=== PATIENT | female | born 1985 | race African-American/Black ===

== ENCOUNTER 2017-08-26 01:17 | Emergency (ER) | payer OTHER ==
--- NOTE | 2017-08-26 01:31 | PDOC ---
History of Present Illness - General Stated Complaint: SHOULDER PAIN Time Seen by Provider: 08/26/17 01:23 History Source: Patient - History of Present Illness Initial Comments: 08/26/17 01:28 Patient is a 32 y.o. female with a PMH of obesity who presents to the ED c/o R shoulder pain. Patient states she was chasing her nephew and she ran into the side of the wall injuring her shoulder. Patient denies any head trauma or LOC. Patient has been using the arm to complete her ADL's but complains of significant pain. NKDA Surgical: L ankle Social: denies cigarettes, denies alcohol, denies recreational drugs Past History - Past Medical History Allergies/Adverse Reactions: Allergies Allergy/AdvReac Type Severity Reaction Status Date / Time No Known Allergies Allergy Verified 08/26/17 01:50 Home Medications: Ambulatory Orders No Home Medications 0 dose .ROUTE UTDICT 03/14/14 - Immunization History Td Vaccination: Yes TDAP Vaccination: Yes Immunization Up to Date: Yes - Suicide/Smoking/Psychosocial Hx Smoking Status: No Smoking History: Never smoked Number of Cigarettes Smoked Daily: 0 Hx Alcohol Use: No Review of Systems - Review of Systems Constitutional: No: Chills, Fever Respiratory: No: Shortness of Breath Cardiac (ROS): No: Chest Pain Musculoskeletal: Yes: Joint Pain All Other Systems: Reviewed and Negative *Physical Exam - Physical Exam General Appearance: Yes: Nourished, Obese Neck: positive: Trachea midline, Supple Respiratory/Chest: positive: Lungs Clear Cardiovascular: positive: S1, S2 Extremity: positive: Normal Capillary Refill, Normal Inspection, Other (RUE limited ROM, no TTP, neurovasculary intact) Neurologic: positive: bench tool maker II-XII NML intact, Fully Oriented, Alert Medical Decision Making - Medical Decision Making 08/26/17 02:55 Patient is a 32 y.o. female who presents to the ED c/o R shoulder pain following an injury. On PE patient has limited ROM however is neurovasculary intact. XR of shoulder and hand shows no acute fracture or dislocation. 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 *DC/Admit/Observation/Transfer Diagnosis at time of Disposition: Injury - Discharge Dispostion Disposition: HOME Condition at time of disposition: Good Admit: No - Referrals Referrals: Carmina Mancini [Primary Care Provider] - Ada Monreal MD [Staff Physician] - - Patient Instructions Printed Discharge Instructions: Shoulder Sprain Additional Instructions: Use Motrin for pain control. Please follow up with your PCP should your pain persist. Please contact Dr. Ashley (contact information provided) for evaluation of your irregular menstrual periods. - Post Discharge Activity
--- NOTE | 2017-08-26 01:47 | PDOC ---
Attending Attestation - Resident Resident Name: Bing Cruz - ED Attending Attestation I have performed the following: I have examined & evaluated the patient, The case was reviewed & discussed with the resident, I agree w/resident's findings & plan, Exceptions are as noted <Vale Dean - Last Filed: 08/26/17 01:47> - HPI HPI: 08/26/17 02:26 Patient is a 32 year old female with a significant past medical history of unspecified gynecological problem who presents to the ED with complaints of right shoulder pain that began tonight. Patient reports chasing another individual while indoor when she ran into a doorway edge causing immediate pain to right shoulder. She reports experiencing right hand numbness and is unsure if it is related to her shoulder pain. Patient states she is right hand dominant. Denies chest pain, SOB. Denies fever, chills. Denies nausea, vomiting. Denies lightheadedness, headache. Denies Loss of consciousness, head trauma. Denies any other symptoms. Allergies: None Social history: No smoking. No alcohol. No illicit drugs. Surgical history: left knee surgery PMD: Dr. Carmina Mancini <Bob Savage - Last Filed: 08/26/17 02:26>
[2017-08-26 01:49] VITALS: TEMP 98.2; BMI 49.3
[2017-08-26] MEDS ORDERED: IBUPROFEN 400 MG TABLET (FP) PO ONE ×2 (03:05→03:31)
[2017-08-26 03:48] VITALS: BP 130/85; PULSE 60
== END 2017-08-26 03:48 | disposition home or self-care (01) ==
LOC: JER 01:17
DX: M25.511 Pain in right shoulder (principal); W22.01XA Walked into wall, initial encounter; Y93.02 Activity, running; Y92.9 Unspecified place or not applicable; E66.9 Obesity, unspecified; Z68.42 Body mass index [BMI] 45.0-49.9, adult
CPT/HCPCS: 73030-TC-RT; 73130-TC-RT; 84703; 99283-25

== ENCOUNTER 2019-05-21 16:27 | Emergency (ER) | payer SELFPAY ==
--- NOTE | 2019-05-21 16:35 | PDOC ---
Rapid Medical Evaluation Chief Complaint: Pain Time Seen by Provider: 05/21/19 16:34 Medical Evaluation: Allergies Allergy/AdvReac Type Severity Reaction Status Date / Time No Known Allergies Allergy Verified 05/21/19 16:34 05/21/19 16:34 HPI: Bacl pain x2 weeks with motion and activity PE: No gross deficits ORDERS:Nothing Discharge Disposition - Diagnosis Back pain - Referrals - Patient Instructions - Post Discharge Activity
[2019-05-21 16:37] VITALS: BP 173/70; PULSE 88; TEMP 98.1; BMI 58.6
[2019-05-21] MEDS ORDERED: KETOROLAC TROMETHAMINE 60 MG/2 ML VIAL IM ONE (18:11)
[2019-05-21] MEDS ORDERED: CYCLOBENZAPRINE HCL 10 MG TABLET (FP) PO ONE (18:12)
--- NOTE | 2019-05-21 18:13 | PDOC ---
History of Present Illness - General Chief Complaint: Back Pain Stated Complaint: PAIN Time Seen by Provider: 05/21/19 16:34 History Source: Patient - History of Present Illness Initial Comments: 05/21/19 19:49 Chief complaint: Back pain Patient is a healthy 34-year-old female, overweight complaining of on and off back pain for the last few weeks, patient states she went to work and had difficulty standing and got worse pain. Patient denies any numbness, dysuria, incontinence or saddle anesthesia. denies any fever. GENERAL/CONSTITUTIONAL: No fever, weakness. dizziness HEAD, EYES, EARS, NOSE AND THROAT: No change in vision. No ear pain or discharge. No sore throat. CARDIOVASCULAR: No chest pain RESPIRATORY: No shortness of breath or cough GASTROINTESTINAL: No pain, nausea, vomiting, diarrhea or constipation GENITOURINARY: No dysuria MUSCULOSKELETAL: No neck +back pain SKIN: No rash NEUROLOGIC: No headache, vertigo, loss of consciousness, or loss of sensation. GENERAL: The patient is awake, alert, and fully oriented, in no acute distress. HEAD: Normal with no signs of trauma. EYES: Pupils equal, round and reactive to light, sclera anicteric, conjunctiva clear. ENT: pharynx: no erythema, no exudate, uvula midline NECK: supple CHEST: clear, nontender, rr ABD: soft, nontender BACK: Mild lower back tenderness, no signs of injury EXTREMITIES: Normal range of motion, no edema. NEUROLOGICAL: Normal speech, normal gait. Cranial nerves II through XII grossly intact, no gross focal abnormalities SKIN: Warm, Dry Past History - Past Medical History Allergies/Adverse Reactions: Allergies Allergy/AdvReac Type Severity Reaction Status Date / Time No Known Allergies Allergy Verified 05/21/19 16:34 Home Medications: Ambulatory Orders No Home Medications 0 dose .ROUTE UTDICT 03/14/14 Cyclobenzaprine HCl [Flexeril 10 mg] 10 mg PO TID PRN #14 tablet 05/21/19 Meloxicam [Mobic] 15 mg PO DAILY #14 tablet 05/21/19 COPD: No - Immunization History Td Vaccination: Yes TDAP Vaccination: Yes Immunization Up to Date: Yes - Suicide/Smoking/Psychosocial Hx Smoking Status: No Smoking History: Never smoked Number of Cigarettes Smoked Daily: 0 Hx Alcohol Use: No Drug/Substance Use Hx: No *Physical Exam - Vital Signs Last Vital Signs Temp Pulse Resp BP Pulse Ox 98.1 F 88 18 173/70 H 97 05/21/19 16:34 05/21/19 16:34 05/21/19 16:34 05/21/19 16:34 05/21/19 16:34 Medical Decision Making - Medical Decision Making 05/21/19 19:51 Patient with ongoing issue of on and off back pain, worse today at work, no dysuria, incontinence, numbness or saddle anesthesia. Patient is able to ambulate. Patient denies . Patient will get Toradol and Flexeril. Patient counseled in being overweight and how that contributes to back pain. She will follow-up with her doctor she was also made aware of her blood pressure reading here although she does not have a history of high blood pressure, she will get it checked out her doctors again Discussed issues, findings, results, applicable medications and treatments and follow-up. All these were understood and all questions were answered *DC/Admit/Observation/Transfer Diagnosis at time of Disposition: Back pain Qualifiers: Back pain location: low back pain Chronicity: unspecified Back pain laterality : unspecified Sciatica presence: without sciatica Qualified Code(s): M54.5 - Low back pain - Discharge Dispostion Disposition: HOME Condition at time of disposition: Stable Decision to Admit order: No - Prescriptions Prescriptions: Cyclobenzaprine HCl [Flexeril 10 mg] 10 mg PO TID PRN #14 tablet PRN Reason: Back Pain Meloxicam [Mobic] 15 mg PO DAILY #14 tablet - Referrals Referrals: Carmina Mancini [Primary Care Provider] - Jordy Xie MD [Staff Physician] - - Patient Instructions Printed Discharge Instructions: Low Back Pain Additional Instructions: No heavy lifting or bending Apply ice to the area 20 minutes every 2 hours for the next 2 days take mobic 15 mg daily for pain and flexeril 1 tab 3 times daily for spasm Return to the nearest ER if numbness, weakness, severe pain, problems with urinating or having bowel movements. Call orthopedist today for an appointment for further evaluation - Post Discharge Activity
[2019-05-21] MEDS ORDERED: KETOROLAC TROMETHAMINE 60 MG/2 ML VIAL ONE (18:18)
[2019-05-21] MEDS ORDERED: CYCLOBENZAPRINE HCL 10 MG TABLET (FP) ONE (18:18)
== END 2019-05-21 18:45 | disposition home or self-care (01) ==
LOC: JERFT 16:27
PROC: 3E0233Z Introduction of Anti-inflammatory into Muscle, Percutaneous Approach (ICD-10-PCS; principal; 2019-05-21)
DX: M54.5 Low back pain (principal); E66.01 Morbid (severe) obesity due to excess calories; Z68.43 Body mass index [BMI] 50.0-59.9, adult
CPT/HCPCS: 99282-25